=== PATIENT | male | born 1990 | race African-American/Black ===

== ENCOUNTER 2018-05-03 14:49 | Emergency (ER) | payer OTHER ==
[~2018-05-03] VITALS: Ht 172.7 cm; Wt 74.4 kg
[~2018-05-03 14:49] MED LIST: INDOMETHACIN25 M1 PO
[2018-05-03 16:10] LABS: ABSOLUTE BASOPHIL COUNT 0 /CUMM (0.0-0.2); ABSOLUTE EOSINOPHIL COUNT 0.1 /CUMM (0.0-0.7); ABSOLUTE GRANULOCYTE CT 1.6 /CUMM (1.4-6.5); ABSOLUTE LYMPH COUNT 1.1 /CUMM (1.2-3.4); ABSOLUTE MONOCYTE COUNT 0.4 /CUMM (0.10-0.60); BASOPHIL % 0.8 % (0.0-2.0); EOSINOPHIL % 3.6 % (0-5); GRANULOCYTE % 50.2 % (42.2-75.2); HEMATOCRIT 36.3 % (42-52); MEAN CORPUSCULAR HGB 29.3 PG (27.0-31.0); MEAN CORPUSCULAR HGB CONC 33.9 G/DL (33.0-37.0); MEAN CORPUSCULAR VOLUME 86.4 FL (80.0-94.0); PLATELET COUNT 167 /CUMM (130-400); RBC DISTRIBUTION WIDTH 13.3 % (11.5-14.5); RED BLOOD CELL CT 4.21 /CUMM (4.70-6.10); WHITE BLOOD CELL COUNT 3.2 /CUMM (4.8-10.8)
--- NOTE | 2018-05-03 16:12 | ULTRASOUND REPORT ---
EXAMINATION: US TRIPLEX OF LOWER EXTREMITIES, BILATERAL CLINICAL INFORMATION: Bilateral leg swelling COMPARISON: None TECHNIQUE: Color-flow triplex imaging with spectral analysis and compression Doppler were performed on the lower extremities. FINDINGS: Respiratory variation, normal compression and augmented flow are noted throughout the lower extremities. The visualized common femoral vein, superficial femoral vein, profunda femoral vein, popliteal vein and midcalf peroneal and posterior tibial venous segments show no evidence of deep venous thrombosis. There is a fluid question within the left popliteal fossa measuring 3.7 x 0.9 x 3.0 cm. IMPRESSION: No evidence of deep venous thrombosis involving the bilateral lower extremities. Left sided bermudez cyst.
--- NOTE | 2018-05-03 16:46 | ED UPPER/LOWER EXTREMITY COMPL ---
History of Present Illness General Chief Complaint: Lower Extremity Problems Stated Complaint: LEG PAIN AND SWELLING Source: patient Exam Limitations: no limitations Vital Signs & Intake/Output Vital Signs & Intake/Output Vital Signs Date Time Temp Pulse Resp B/P B/P Pulse O2 O2 Flow FiO2 Mean Ox Delivery Rate 05/03 1631 Room Air 05/03 1512 98.6 87 18 113/71 100 Room Air Allergies Coded Allergies: NO KNOWN ALLERGIES (01/25/16) Reconcile Medications Indomethacin 25 MG CAPSULE 1 CAP PO TID percicarditis with food Triage Note: 27M TO ED FOR SWELLING TO HANDS AND LOWER EXTREMITIES. REPORTS HE RECENTLY WAS ON A DIETARY FAST FOR 19 DAYS. DENIES CP/SOB, AMBIGUOUS WHEN ANSWERING ABOUT PALPITATIONS. -N/V/ + DIARRHEA, DENIES BLACK OR BLOODY STOOLS. REPORTS LONG CAR RIDE FROM [place] 1-2 WEEKS AGO. Triage Nurses Notes Reviewed? yes HPI: 27 y/o otherwise healthy male presents to the ED with complaints of bilateral leg and hand swelling since last night. Pt states he first noticed the swelling after the shower and it progressively worsened up until today's visit. Pt states the swelling presents with a constant pressure pain whenever he is walking. Associated sxns are mild paresthesia bilaterally in legs and hands and intermittent chills. Pt mentioned how he went on a dry fasting streak for 3 weeks prior to all of these symptoms. Pt started eating and drinking liquids about a week ago. Pt denies taking any medications currently. Pt denies fever, chills, SOB, DAHL, CP, trauma, recent travel, or fatigue. Past History Travel History Traveled to [place] past 21 day No Medical History Any Pertinent Medical History? see below for history Neurological: NONE EENT: NONE Cardiovascular: NONE Respiratory: NONE Gastrointestinal: NONE Hepatic: NONE Renal: NONE Musculoskeletal: NONE Psychiatric: NONE Endocrine: NONE Surgical History Surgical History: N Psychosocial History What is your primary language Maori Tobacco Use: Never used Family History Hx Contributory? No Review of Systems Review of Systems Constitutional: Reports: no symptoms. EENTM: Reports: no symptoms. Respiratory: Reports: no symptoms. Cardiovascular: Reports: no symptoms. Gastrointestinal/Abdominal: Reports: no symptoms. Genitourinary: Reports: no symptoms. Musculoskeletal: Reports: no symptoms. Skin: Reports: no symptoms. Neurological/Psychological: Reports: no symptoms. Hematologic/Endocrine: Reports: no symptoms. Immunological: Reports: no symptoms. All Other Systems: Reviewed and Negative Physical Exam Physical Exam General Appearance: well developed/nourished, no apparent distress Head: atraumatic, normal appearance Eyes: Bilateral: normal appearance. Ears, Nose, Throat: hearing grossly normal Neck: normal inspection, supple, full range of motion Cardiovascular/Respiratory: normal breath sounds, normal peripheral pulses Back: normal inspection, normal range of motion Leg Left: normal range of motion, normal inspection Leg Right: normal range of motion, normal inspection Skin: intact, normal color, warm/dry Progress Differential Diagnosis: arterial insufficiency, cellulitis, CHF, compartment syndrome, contusion, dislocation, DVT, fracture, gout, septic arthritis, sprain, tendon injury Plan of Care: Orders Procedure Date/time Status URINALYSIS 05/03 1512 Complete COMPREHENSIVE METABOLIC PANEL 05/03 151 Active CBC WITHOUT DIFFERENTIAL 05/03 1512 Complete B-TYPE NATRIURETIC PEP (BNP) 05/03 151 Active Laboratory Tests 05/03/18 1600: Urine Color STRAW, Urine Clarity CLDY H, Urine pH 6.0, Ur Specific [place] <= 1.005, Urine Protein NEG, Urine Ketones NEG, Urine Nitrite NEG, Urine Bilirubin NEG, Urine Urobilinogen 0.2, Ur Leukocyte Esterase NEG, Ur Microscopic EXAM NOT REQUIRED, Urine Hemoglobin NEG, Urine Glucose NEG 05/03/18 1556: Anion Gap 9, Estimated GFR > 60, BUN/Creatinine Ratio 7.5, Glucose 61 L, Calcium 8.6, Total Bilirubin 0.3, AST 34, ALT 83 H, Alkaline Phosphatase 40, [id number] Pept Pending, Total Protein 6.0 L, Albumin 3.5, Globulin 2.5, Albumin/Globulin Ratio 1.4, CBC w Diff NO MAN DIFF REQ, RBC 4.21 L, MCV 86.4, MCH 29.3, MCHC 33.9, RDW 13.3, MPV 9.0, Gran % 50.2, Lymphocytes % 34.3, Monocytes % 11.1 H, Eosinophils % 3.6, Basophils % 0.8, Absolute Granulocytes 1.6, Absolute Lymphocytes 1.1 L, Absolute Monocytes 0.4, Absolute Eosinophils 0.1, Absolute Basophils 0 Diagnostic Imaging: Viewed by Me: Ultrasound. Discussed w/RAD: Ultrasound. Radiology Impression: PATIENT: EMORY CHAPARRO PRESENT AGE: 27 PATIENT ACCOUNT NO: [id number] : 88 LOCATION: [facility] ORDERING PHYSICIAN: Elsa CAO SERVICE DATE: 05/03/18 EXAM TYPE : US - US-EXT BILAT VENOUS DOPPLER EXAMINATION: US TRIPLEX OF LOWER EXTREMITIES, BILATERAL CLINICAL INFORMATION: Bilateral leg swelling COMPARISON: None TECHNIQUE: Color-flow triplex imaging with spectral analysis and compression Doppler were performed on the lower extremities. FINDINGS: Respiratory variation , normal compression and augmented flow are noted throughout the lower extremities. The visualized common femoral vein, superficial femoral vein, profunda femoral vein, popliteal vein and midcalf peroneal and posterior tibial venous segments show no evidence of deep venous thrombosis. There is a fluid question within the left popliteal fossa measuring 3.7 x 0.9 x 3.0 cm. IMPRESSION: No evidence of deep venous thrombosis involving the bilateral lower extremities. Left sided bermudez cyst. DICTATED BY: Betsy Fam MD DATE/TIME DICTATED:05/03/181607 WOOL HANDLER:CAROL ANN DATE/TIME TRANSCRIBED:1607 CONFIDENTIAL, DO NOT COPY WITHOUT APPROPRIATE AUTHORIZATION. < Electronically signed in Other Vendor System> SIGNED BY: Betsy Fam MD 161 Departure Departure Disposition: HOME OR SELF CARE Condition: Stable Clinical Impression Primary Impression: Bilateral lower extremity edema Referrals: Patient Has No Primary Care Dr (PCP/Family) Additional Instructions: Add more protein into your diet. Keep your legs elevated so the swelling goes down. Follow up with your PCP. Return to ER if any new or worsening symptoms. Departure Forms: Customer Survey General Discharge Information
[2018-05-03 16:51] VITALS: BP 122/66
== END 2018-05-03 16:54 ==
LOC: ERH 14:49
PROVIDERS: Physician Assistant
DX: R60.0 Localized edema (principal)
CPT/HCPCS: 81003; 93970